=== PATIENT | male | born 1965 | race Caucasian/White ===

== ENCOUNTER 2020-02-17 06:35 | Day surgery (SDC) | payer MEDICAID ==
[2020-02-14 16:20] LABS: BASOPHILS 0.7 % (0-2); EOSINOPHILS 2.8 % (0-7); HEMATOCRIT 46.5 % (42.0-54.0); HEMOGLOBIN 15.6 g/dL (13.5-17.5); IMMATURE GRANULOCYTES 0.4 % (0-5); LYMPHOCYTES 27.1 % (15-50); MCH 29.9 pg (26.0-34.0); MCHC 33.5 g/dL (31.0-37.0); MCV 89.3 fL (80.0-100.0); MEAN PLATELET VOLUME 9.4 fL (7.4-10.4); MONOCYTES 6.1 % (2-11); NEUTROPHILS 62.9 % (40-80); RBC 5.21 10x6/uL (4.20-6.10); RDW 12.9 % (11.5-14.5); WBC 7.5 10x3/uL (4.8-10.8)
[2020-02-14 16:45] LABS: CALC OSMOLALITY 276 mosm/kg (275-300); CARBON DIOXIDE 30.4 mmol/L (21.0-32.0); CHLORIDE - SERUM 106 mmol/L (98-107); CREATININE - SERUM 0.9 mg/dL (0.6-1.3); GLUCOSE 94 mg/dL (74-106); SODIUM 139 mmol/L (136-145); UREA NITROGEN 11 mg/dL (7-18); eGFR NON AFRICAN AMERICAN > 90 mL/min (90-120)
[2020-02-14 16:48] LABS: PLATELET COUNT 209 10x3/uL (130-400)
[~2020-02-17] VITALS: Ht 177.8 cm; Wt 95.7 kg
[~2020-02-17 06:35] MED LIST: ACULAR 0.5 % OPH5 ML EACH EYE; ATROVENT 0.02%2.5 ML UPD; BACTRIM DS TABL1 TAB PO; BACTROBAN CREAM15 GM TOPICAL; BAYER CHEWABLE81 MG PO; COREG25 MG PO; HYDROCHLOROTHIA25 MG PO; HYDROCODONE-APA1 TAB PO; LEVAQUIN500 MG PO; LIPITOR20 MG PO; LOVAZA1 G PO; MUCINEX600 MG PO; OCUVITE TABLET1 TA1 PO; PEPCID20 MG PO; PERCOCET 10/3251 TA1 PO; SPIRIVA18 MCG INH; SYMBICORT 16010.2 GM INH
[2020-02-17 07:27] VITALS: BP 118/75; Ht 177.8 cm; Wt 95.7 kg
[2020-02-17] MEDS ORDERED: CYCLOBENZAPRINE10 MG PO (11:56)
[2020-02-17] MEDS ORDERED: HYDROCODON-ACE1 EA10 PO (11:56)
--- NOTE | 2020-02-17 12:07 | NUR ---
OPA IN AIRWAY ON ADMIT
--- NOTE | 2020-02-17 12:42 | NUR ---
SCOPE PATCH BEHIND RT EAR ON ADMIT
--- NOTE | 2020-02-17 14:49 | NUR ---
1400 MEDICATED FOR PAIN . 1430 VOIDED X1 1445 IV REMOVED AND INSTRUCTIONS GIVEN.
--- NOTE | 2020-02-19 10:50 | OP ---
PATIENT NAME: DANA NICOLE MEDICAL RECORD: [id number] :69 LOCATION:D.OPS ADMISSION DATE: SURGEON: MARIA R MAY MD DATE OF OPERATION: 02/17/2020 PREOPERATIVE DIAGNOSES: 1. Recurrent ventral incisional hernia. 2. Tobacco dependence syndrome. 3. Bipolar disorder. POSTOPERATIVE DIAGNOSES: 1. Recurrent ventral incisional hernia. 2. Tobacco dependence syndrome. 3. Bipolar disorder. PROCEDURE: Recurrent ventral incisional hernia repair with 13.8 x 17.[address] mesh. SURGEON: Maria R May MD REPORT OF PROCEDURE: The patient's abdomen was prepped and draped in sterile fashion. A previous midline incision that encompassed some tissue just to the left of the patient's umbilicus was reopened using sharp dissection and electrocautery was used to dissect through the subcutaneous tissues until we encountered the hernia defect. The initial hernia defect that we found was large and was fat containing. We were able to open up this hernia defect and eventually reduce the contents back into the abdominal cavity. As we entered the abdominal cavity, I could feel on to the anterior abdominal wall and there were multiple other hernia defects present. We went ahead and kept extending our incision superiorly and inferiorly and eventually found 5 separate hernia defects, 2 of these were very small in nature. All of these were fat-containing. The 3 largest ones were in the midline and they had just small bridges of fascia present within them. These fascial bridges were removed leaving 1 large 11 cm long hernia defect. I went ahead and cleared off the tissues overlying the fascia using electrocautery and then I freed up all of the underlying adhesions from the anterior abdominal wall until we had a free area to perform our hernia repair. There was one area of deserosalization of the small section on the small bowel and this was oversewn with Lemberted 3-0 silks. There was no penetration into the lumen of the small bowel. We then inserted a 13.8 x 17.[address] mesh in an underlay fashion and this was sutured down on all sides using multiple interrupted 0 Vicryls. We then irrigated out the wound and assured there was no sign of any bleeding. The fascia was closed in the midline using running #1 loop PDS times 2 incorporating bites of the mesh as we closed this fascia. We then irrigated out the wound one last time and reassured there is no sign of any bleeding. The subcutaneous tissues and the umbilicus were all tacked down using multiple interrupted 3-0 Vicryl. The skin was closed with baljeet and dressed appropriately. COMPLICATIONS: None. CONDITION: Stable. ANESTHESIA: General endotracheal. BLOOD LOSS: 150 mL. OPERATIVE REPORT [id number] DANA NICOLE TRANSINT:[id number] Voice Confirmation ID: [id number] DOCUMENT ID: [id number] MARIA R MAY MD at 1050 CC: [id number] DICTATION DATE: 02/17/20 1203 [place] ERECTOR: 02/17/[address] [facility] 02/17/20 [id number] [place] [address]
== END 2020-02-17 15:30 | disposition home or self-care (01) ==
LOC: D.OPS 06:35
PROVIDERS: ATTEND Surgery
DX: K43.2 Incisional hernia without obstruction or gangrene (principal); F17.200 Nicotine dependence, unspecified, uncomplicated; F31.9 Bipolar disorder, unspecified